=== PATIENT | male | born 1980 | race Asian ===

== ENCOUNTER 2016-11-30 07:08 | Emergency (ER) | payer BC ==
[~2016-11-30] VITALS: Ht 175.3 cm; Wt 72.7 kg
[2016-11-30] MEDS ORDERED: PERTUSS(ACELL),DIPH,TET VAC/PF 0.5 ML VIAL IM ONE (08:30)
[2016-11-30] MEDS ORDERED: LIDOCAINE HCL BUFFERED 1% 20 ML VIAL INJ ONE (08:30)
[2016-11-30 10:30] VITALS: BP 112/73
== END 2016-11-30 10:51 | disposition home or self-care (01) ==
LOC: EMS 07:10
DX: S01.01XA Laceration without foreign body of scalp, initial encounter (principal); W22.8XXA Striking against or struck by other objects, initial encounter; Y93.89 Activity, other specified; Y92.89 Other specified places as the place of occurrence of the external cause; Y99.8 Other external cause status
CPT/HCPCS: 12004; 70250; 90471; 90715; 99284; J3490